=== PATIENT | female | born 1955 | race Caucasian/White ===

== ENCOUNTER → 2017-03-07 | Day surgery (SDC) | payer BC ==
[~2017-03-07] MED LIST: ACETAMINOPHEN 1000 MG/100 ML 100 ML IV ONE; BUPIVACAINE/EPINEPHRINE 0.25% 50 ML VIAL ONE; CENTCHW3 PO; CITRTAB7 PO; ESTR0.5T3 PO; ESTR42.5V VAGINAL; LACTATED RINGER'S 1000 ML INJ 1,000 ML ONE; LEVO.05 PO; LIDOCAINE 1%/EPINEPHrine 1:200,000 PF SOLN 30 ML VIAL ONE; ONDANSETRON HCL 4 MG/2 ML VIAL IV PUSH ONE; PROPOFOL 200 MG/20 ML AMP IV ONE; ceFAZolin 2 GM PREMIX 50 ML ONE
--- NOTE | 2017-03-07 08:54 | TN ---
cc: STACEY PERKINS M.D. DATE OF SURGERY: 03/07/2017 PREOPERATIVE DIAGNOSIS Incisional hernia. POSTOPERATIVE DIAGNOSIS Incisional hernia. PROCEDURE Open repair incisional hernia. SURGEON Dr. Stacey Perkins. FIRST MATE Lay Guevara, MS III. ANESTHESIA General. INDICATIONS This is a very pleasant 61-year-old woman who had previously undergone laparoscopic cholecystectomy and interestingly developed a small incisional hernia at a 5 mm port site. The bulge does not create pain but it is there and it bulges out and she is interested in having it fixed. INTRAOPERATIVE FINDINGS Small hernia defect consistent with 5 mm trocar site containing preperitoneal fatty tissue. The tissue was of good integrity and was primarily approximated with suture and no mesh was used. ESTIMATED BLOOD LOSS Minimal. DESCRIPTION OF PROCEDURE IN DETAIL The patient was identified as Jessie Lynn, taken to the operating room and placed in supine position. Sequential compression devices were placed on bilateral lower extremities. Following induction of adequate general anesthesia the patient's abdomen was prepped and draped in the usual sterile fashion with Betadine. A timeout procedure was performed. Following completion of a timeout procedure to everyone's satisfaction within the room, the area of concern was marked with marking pen for proposed incision and local anesthetic was infiltrated in the subcutaneous tissue. Incision was carried out with a scalpel and hemostasis controlled with electrocautery. Dissection continued posteriorly through the subcutaneous fatty tissue until the herniated preperitoneal fat was identified. It was from surrounding subcutaneous tissue and down to the level of the fascia. The fatty tissue was reduced into the preperitoneal space. The surrounding tissue had good integrity and decided to primarily repair it with suture instead of using any mesh. Four separate inverted 0 Prolene sutures were used to approximate the fascial defect without any significant tension. The wound was irrigated with saline. The subcutaneous space was approximated with interrupted inverted 3-0 Vicryl sutures. The skin was approximated with 4-0 Monocryl subcuticular sutures. Dressings were applied with Mastisol, half-inch brown Steri-Strips, gauze and Tegaderm. The patient tolerated procedure without apparent complication. Sponge, needle and instrument counts were correct at the end of the case. MD NICOLETTE De La Rosa/SHARAN /8:37 AM /8:44 AM
== END | disposition home or self-care (01) ==
LOC: ESDC 06:59
PROVIDERS: ATTEND Surgery Trauma Surgery
DX: K43.2 Incisional hernia without obstruction or gangrene (principal)
CPT/HCPCS: 00832; 49560; J0131; J0690; J2405; J3010; J7120